=== PATIENT | female | born 2000 | race African-American/Black ===

== ENCOUNTER 2020-03-15 09:35 | Inpatient (IN) | payer MEDICAID ==
[~2020-03-15] VITALS: Ht 167.6 cm; Wt 72.6 kg
[2020-03-15] MEDS: LACTATED RINGERS 1,000 ML IV SCH ×5 (10:21→21:51)
[2020-03-15 11:17] LABS: CLARITY URINE CLEAR (CLEAR); COLOR URINE YELLOW (YELLOW); KETONES URINE NEGATIVE (NEGATIVE); LEUKOCYTE ESTERASE URINE NEGATIVE (NEGATIVE); NITRITE URINE NEGATIVE (NEGATIVE); OCCULT BLOOD URINE NEGATIVE (NEGATIVE); PROTEIN URINE NEGATIVE (NEGATIVE)
[2020-03-15] MEDS ORDERED: MAGNESIUM 4 G PREMIX 100 ML IV SCH (12:15)
[2020-03-15] MEDS ORDERED: BETAMETHASONE ACET/BETAMET 30 MG/5 ML VIAL IM SCH (12:15)
[2020-03-15 12:51] LABS: *AMPHETAMINES SCREEN URINE NEGATIVE (NEGATIVE); *BARBITURATES SCREEN URINE NEGATIVE (NEGATIVE); *BENZODIAZEPINES SCREEN URINE NEGATIVE (NEGATIVE); *COCAINE SCREEN URINE NEGATIVE (NEGATIVE)
[2020-03-15 12:52] LABS: CANNABINOID URINE SCREEN NEGATIVE (NEGATIVE); METHADONE URINE SCREEN NEGATIVE (NEGATIVE); OPIATES URINE SCREEN NEGATIVE (NEGATIVE); PHENCYCLIDINE URINE SCREEN NEGATIVE (NEGATIVE)
[2020-03-15] MEDS: MAGNESIUM 20 G PREMIX (L & D) 500 ML IV SCH ×2 (13:15→22:22)
[2020-03-15 13:23] LABS: BASOPHILS % 0.2 % (0.0-2.0); EOSINOPHILS % 0.1 % (0.0-5.0); HEMATOCRIT. 25.7 % (36.0-48.0); HEMOGLOBIN. 8.9 g/dL (12.0-16.0); LYMPHOCYTES % 7.2 % (20.0-50.0); MEAN CORPUSCULAR HEMOGLOBIN 30.5 pg (28.0-32.0); MEAN CORPUSCULAR VOLUME 88.6 fL (81.0-99.0); MEAN PLATELET VOLUME 7.8 fl (7.4-10.4); MONOCYTES % 5.6 % (2.0-8.0); NEUTROPHILS % 86.9 % (40.0-76.0); PLATELET 265 x1000/uL (130-400); RED CELL DISTRIBUTION WIDTH 13.2 % (11.6-14.6)
[2020-03-15 13:25] LABS: PARTIAL THROMBOPLASTIN TIME 30.7 sec (23.4-31.0); PROTHROMBIN TIME 10.1 sec (9.6-11.0)
[2020-03-15 13:56] LABS: HEPATITIS B SURFACE ANTIGEN NEGATIVE
[2020-03-15] MEDS ORDERED: MAGNESIUM 2 G PREMIX 50 ML IV NR (14:00)
[2020-03-15] MEDS ORDERED: NALOXONE HCL 0.4 MG/ML 1ML VIAL IM PRN (14:30)
[2020-03-15] MEDS ORDERED: METHYLERGONOVINE MALEATE 0.2 MG/ML IM PRN (14:30)
[2020-03-15] MEDS ORDERED: LIDOCAINE HCL 1% 20ML VIAL (Pyxis) INJ INFIL SCH (14:30)
[2020-03-15] MEDS ORDERED: MINERAL OIL 30ML BOTTLE PR ONE (14:30)
[2020-03-15] MEDS: BUTORPHANOL TARTRATE 2 MG/ML VIAL IV PRN ×2 (14:37→18:28)
[2020-03-15] MEDS ORDERED: AZITHROMYCIN 500 MG in DEXT 5% WATER 250 ML IV SCH (15:00)
[2020-03-15] MEDS: AMPICILLIN 2,000 MG in SODIUM CHLORIDE 0.9% 100 ML IV SCH ×2 (15:01→22:28)
[2020-03-15] MEDS ORDERED: ROPIVACAINE HCL/PF EPIDURAL 200 ML EPI SCH (20:51)
[2020-03-15] MEDS ORDERED: AMPICILLIN 1,000 MG in SODIUM CHLORIDE 0.9% 50 ML IV SCH (21:00)
[2020-03-15] MEDS ORDERED: DEXT 5%/LR + PITOCIN 20UNITS/L 2,000 ML IV ONE (22:21)
[2020-03-16] MEDS ORDERED: DIPHENHYDRAMINE 25MG CAPSULE PO PRN (01:30)
[2020-03-16] MEDS ORDERED: RHO(D) IMMUNE GLOBULIN 300 MCG/SYR IM PRN (01:30)
[2020-03-16] MEDS ORDERED: LANOLIN OINT 7GM TUBE TOP PRN (01:30)
[2020-03-16] MEDS ORDERED: IBUPROFEN 800MG TABLET PO PRN (01:30)
[2020-03-16] MEDS ORDERED: IBUPROFEN 400MG TABLET PO PRN (01:30)
[2020-03-16] MEDS: DEXT 5%/LR + PITOCIN 20UNITS/L 1,000 ML IV SCH ×2 (02:00→02:12)
[2020-03-16 03:15] VITALS: BP 118/56
[2020-03-16 04:15] VITALS: BP 117/74
[2020-03-16 04:45] VITALS: BP 119/71
[2020-03-16 08:00] VITALS: BP 115/52
[2020-03-16] MEDS ORDERED: PRENATAL VIT/FE FUMARATE/FA TABLET PO SCH (09:00)
[2020-03-16] MEDS ORDERED: METHYLERGONOVINE MALEATE 0.2 MG/ML IM PRN (14:31)
[2020-03-16 16:00] VITALS: BP 112/57
[2020-03-16 20:00] VITALS: BP 102/51
[2020-03-17 04:00] VITALS: BP 101/53
[2020-03-17] MEDS ORDERED: IBUP-2030 PO (06:45)
[2020-03-17] MEDS ORDERED: FERR325T6 MT (06:45)
[2020-03-17 07:01] LABS: BASOPHILS % 0.1 % (0.0-2.0); EOSINOPHILS % 0.1 % (0.0-5.0); HEMATOCRIT. 21.4 % (36.0-48.0); HEMOGLOBIN. 7.2 g/dL (12.0-16.0); LYMPHOCYTES % 10.6 % (20.0-50.0); MEAN CORPUSCULAR VOLUME 89.6 fL (81.0-99.0); MEAN PLATELET VOLUME 7.5 fl (7.4-10.4); NEUTROPHILS % 84.2 % (40.0-76.0); PLATELET 267 x1000/uL (130-400); RED BLOOD CELL COUNT 2.39 mill/uL (4.2-5.4); RED CELL DISTRIBUTION WIDTH 13.7 % (11.6-14.6)
[2020-03-17 07:45] VITALS: BP 104/63
== END 2020-03-17 11:35 | disposition home or self-care (01) | DRG 560 ==
LOC: OBSVTOIN 09:35 → 8 EST LDRP 09:35 → 8EST 03-16 03:01
PROVIDERS: ADMIT Obstetrics & Gynecology; ATTEND Obstetrics & Gynecology
PROC: 10E0XZZ Delivery of Products of Conception, External Approach (ICD-10-PCS; principal; 2020-03-16)
PROC: 3E0R3BZ Introduction of Anesthetic Agent into Spinal Canal, Percutaneous Approach (ICD-10-PCS; 2020-03-16)
PROC: 00HU33Z Insertion of Infusion Device into Spinal Canal, Percutaneous Approach (ICD-10-PCS; 2020-03-16)
DX: O60.14X0 Preterm labor third trimester with preterm delivery third trimester, not applicable or unspecified (principal); D64.9 Anemia, unspecified; O99.03 Anemia complicating the puerperium; Z3A.36 36 weeks gestation of pregnancy; Z37.0 Single live birth
CPT/HCPCS: 36415; 76805; 76818; 80305; 81003; 83735; 85025; 86592; 86703; 86762; 86850; 86900; 87340; 99281; G0378; J0290; J0456; J0595; J0702; J2590; J2795; J3475; J7050; J7060

== ENCOUNTER 2022-11-29 09:39 | Emergency (ER) | payer MEDICAID, OTHER ==
[~2022-11-29] VITALS: Ht 167.6 cm; Wt 76.0 kg
[~2022-11-29 09:39] MED LIST: FERR325T6 MT; IBUP-2030 PO
[2022-11-29] MEDS ORDERED: BACITRACIN ZINC OINT UDPKT TOP ONE (10:15)
[2022-11-29] MEDS ORDERED: LIDOCAINE HCL/PF 1% 10 MG/ML 5ML VIAL INFIL ONE (10:15)
[2022-11-29] MEDS ORDERED: BO1 TP (12:01)
[2022-11-29 12:44] VITALS: BP 127/66
== END 2022-11-29 12:46 | disposition home or self-care (01) ==
LOC: ER 09:39
DX: L02.415 Cutaneous abscess of right lower limb (principal)
CPT/HCPCS: 10060; 99282; J3490; Z7610